=== PATIENT | male | born 1935 | race Two or more races ===

== ENCOUNTER 2017-02-01 11:10 | Emergency (ER) | payer MEDICARE, BC ==
[~2017-02-01] VITALS: Ht 177.8 cm; Wt 85.0 kg
--- NOTE | ~2017-02-01 | EKG ---
PATIENT: BETI FRANKLIN UNIT #: [id number] Ventricular Rate: 70 BPM Atrial Rate: 70 BPM P-R Interval: 208 ms QRS Duration: 108 ms Q-T Interval: 404 ms QTC Calculation(Bezet): 436 ms P [place]: 86 degrees Calculated R [place]: 4 degrees Calculated T [place]: 23 degrees Diagnosis Line: Normal sinus rhythm Diagnosis Line: T wave abnormality, consider anterior ischemia Diagnosis Line: Cannot rule out Right ventricular hypertrophy Diagnosis Line: Normal ECG Diagnosis Line: When compared with ECG of 28-JUL-2015 22:52, Diagnosis Line: deep s waves in lateral leads are new Diagnosis Line: Confirmed by SAUD SALGADO MD ([id number]) on 02/02/2017 Diagnosis Line: 5:04:42 PM INTERPRETING MD: NAOMI BASHIR
--- NOTE | ~2017-02-01 | CR2 ---
[facility] A Service of [facility] RADIOLOGY TEXT RESULTS PATIENT: BETI FRANKLIN LOCATION: [facility] : 37 UNIT #: [id number] AGE: [address]: Ericka Emanuel MD SEX: M ORDER DR: [id number] [facility] [address] [place], [place] [address] [id number] E MR#: [id number] Acc #: [id number] NAME: BETI FRANKLIN. : 1935 SEX: M STUDY DATE/TIME: 02/01/2017 14:14 UNIT: [facility] ROOM: STUDY DESCRIPTION: CR Abdomen Acute Series Attending Physician: Ericka Emanuel M.D. Ordering Physician: Ericka Emanuel M.D. Primary Care Physician: David Seymour Jr., M.D. MEDICAL IMAGING REPORT This report is preliminary unless electronic signature is present EXAM Acute abdominal series 02/01/2017 HISTORY Abdominal pain. No bowel movement 3 days. Dizziness. Loss of appetite. Prior CABG. TECHNIQUE AP radiograph of the chest is presented. Supine and upright radiographs of the abdomen also presented. COMPARISON STUDIES Chest radiograph is dated 06/04/2016. FINDINGS Status post median sternotomy and CABG. Stable mild cardiac enlargement. Lung volumes markedly improved compared to prior study. There is no compelling evidence of acute infectious or inflammatory disease, pleural effusion or pneumothorax. No suspicious nodule. Calcified granuloma right lung base near diaphragm. Status post cholecystectomy. Bowel gas pattern abnormal. Multiple air-distended loops of small bowel and colon. Degree of small bowel and colonic distension is proportionate. Air and stool seen in the colon to the rectum. The appearance is nonspecific. This may represent mild generalized ileus. In the absence of pathologic small bowel or colonic dilatation, obstruction seems unlikely. Volume of stool in the rectum appears physiologic. There is no compelling evidence of impaction. Please correlate with the patient's overall clinical status. Short interval clinical and imaging followup recommended. Bony structures of the abdomen and pelvis show degenerative changes in the [facility] A Service of [facility] RADIOLOGY TEXT RESULTS PATIENT: BET[facility] FRANKLIN [id number] 37 UNIT #: [id number] AGE: [address]: Ericka Emanuel MD SEX: M ORDER DR: spine. No acute-appearing bony abnormality. Dictated by... David Terry M.D. THIS IS AN ELECTRONICALLY VERIFIED REPORT David Terry M.D. at 02/02/2017 5:54 PM KENAN/kelly TD: 02/01/2017 20:23 JOB #: [id number] MEDICAL IMAGING REPORT Page 1 of 1 COPY
[~2017-02-01 11:10] MED LIST: ASPIRIN PO; ASPIRIN81 M1 PO; ASPIRINEC PO; ATIVAN PO; ATIVAN0.5 M1 PO; ATIVAN0.5 MG PO; BENTYL10 MG PO; COREG CR PO; COREG PO; COREG6.25 MG PO; DICYCLOMINE HCL10 MG PO; EC-NAPROSYN500 MG PO; IMDUR PO; LISINOPRIL PO; LORAZEPAM0.5 MG PO; LORTAB 10-5001 EACH PO; MED FOR CHOLESTEROL; OMEPRAZOLE40 MG PO; PEPCID40 MG PO; PRAVACHOL PO; PRAVASTATIN SOD20 MG PO; PRAVASTATIN SOD40 MG PO; PREDNISONE PO; PRILOSEC40 MG PO; PRINIVIL10 MG PO; PROTONIX PO; SERTRALINE HCL100 M1 PO; ZOCOR PO
[2017-02-01 15:55] LABS: BASOPHIL% 0.4 % (0-2.5); EOSINOPHIL# 0.2 X10e3 (0-0.7); EOSINOPHIL% 4.1 % (0.0-7.0); HEMATOCRIT 37.2 % (38.0-50.0); HEMOGLOBIN 12.6 gm/dL (13.0-16.0); LYMPHOCYTE# 1.6 X10e3 (1.0-3.5); MEAN CELL VOLUME 87.8 FL (83-96); MEAN CORPUSCULAR HEMOGLOBIN 29.7 PG (28-34); MEAN CORPUSCULAR HGB CONC 33.8 g/dL (30-36); MEAN PLATELET VOLUME 6.3 FL (6.5-11.5); MONOCYTE# 0.6 X10e3 (0-1.0); MONOCYTE% 10.7 % (3.0-12.0); NEUTROPHIL# 3.4 X10e3 (1.5-7.1); NEUTROPHIL% 57.8 % (40-75); PLATELET COUNT 211 X10e3 (140-420); RED BLOOD COUNT 4.24 X10e (3.90-5.60); RED CELL DISTRIBUTION WIDTH 13.2 % (11.0-15.5); WHITE BLOOD COUNT 5.8 X10e3 (4.0-10.5)
[2017-02-01 15:58] LABS: DIFF IND NO
[2017-02-01 16:01] LABS: POC - CKMB 1.9 ng/mL (0.0-7.9); POC - TROPONIN <0.05 ng/mL (<=0.05)
[2017-02-01 16:05] LABS: INR 1.8; PROTHROMBIN TIME (PATIENT) 19.5 SECONDS (10.0-11.7)
[2017-02-01 16:13] LABS: ALBUMIN SERUM 4.1 g/dL (3.5-5.0); BILIRUBIN, DIRECT 0.1 mg/dL (0.0-0.2); BILIRUBIN,INDIRECT 0.6 mg/dL (0.0-0.9); BILIRUBIN,TOTAL 0.7 mg/dL (0.2-2.0); BUN/CREATININE RATIO 22.85; CALCIUM SERUM 8.9 mg/dL (8.4-10.2); CREATININE SERUM 0.7 mg/dL (0.6-1.4); GLOM FILT RATE Estimated 89.2 mL/min (>60); PROTEIN TOTAL SERUM 7.3 g/dL (6.0-8.3)
== END 2017-02-01 19:45 | disposition home or self-care (01) ==
LOC: CED 11:10
PROVIDERS: Emergency Medicine
DX: K59.00 Constipation, unspecified (principal); I10 Essential (primary) hypertension
CPT/HCPCS: 36415; 74022; 80048; 80076; 82553; 84484; 85025; 85610; 93005; 99284